=== PATIENT | female | born 1960 | race Caucasian/White ===

== ENCOUNTER 2017-10-21 12:24 | Emergency (ER) | payer MEDICAID, OTHER ==
[~2017-10-21] VITALS: Ht 157.5 cm; Wt 57.2 kg
[2017-10-21 12:51] VITALS: BP_SYST 147
[2017-10-21 14:11] VITALS: BP_SYST 139
== END 2017-10-21 14:11 | disposition home or self-care (01) ==
LOC: SED 12:24
DX: I10 Essential (primary) hypertension (principal); E11.65 Type 2 diabetes mellitus with hyperglycemia; B34.9 Viral infection, unspecified; I25.2 Old myocardial infarction; G43.909 Migraine, unspecified, not intractable, without status migrainosus; Z88.2 Allergy status to sulfonamides
CPT/HCPCS: 36415; 82962; 86710; 99284

== ENCOUNTER 2019-02-02 20:48 | Emergency (ER) | payer MEDICAID, MEDICARE ==
[~2019-02-02] VITALS: Ht 157.5 cm; Wt 63.5 kg
[2019-02-02 20:53] VITALS: BP_SYST 118
[2019-02-02] MEDS ORDERED: AMOXICILLIN/CLAVULANATE POTASSIUM 500 MG TABLET PO ONE (21:15)
== END 2019-02-02 21:20 | disposition home or self-care (01) ==
LOC: SED 20:48
DX: H66.91 Otitis media, unspecified, right ear (principal); H60.91 Unspecified otitis externa, right ear; I25.2 Old myocardial infarction; E11.9 Type 2 diabetes mellitus without complications; I10 Essential (primary) hypertension; G43.909 Migraine, unspecified, not intractable, without status migrainosus; Z88.2 Allergy status to sulfonamides
CPT/HCPCS: 99283

== ENCOUNTER 2019-11-07 16:35 | Emergency (ER) | payer MEDICARE, MEDICAID ==
[~2019-11-07] VITALS: Ht 157.5 cm; Wt 59.9 kg
[2019-11-07 16:46] VITALS: BP_SYST 113
--- NOTE | 2019-11-07 16:57 | NUR ---
Patient triaged and placed in waiting room. VSS and patient appears in no acute distress at this time. Accompanied by self, awaiting available bed, and MD notified of need for MSE.
[2019-11-07 17:14] LABS: BASOPHILS # (AUTO) 0.1 K/uL (0.0-0.2); BASOPHILS % (AUTO) 0.7 % (0.0-2.0); EOSINOPHILS # (AUTO) 0.2 K/uL (0.0-0.4); EOSINOPHILS % (AUTO) 2.2 % (0.0-4.0); HEMATOCRIT 40.4 % (36-48); HEMOGLOBIN 13.9 g/dL (12.0-16.0); LYMPHOCYTES # (AUTO) 3.3 K/uL (1.0-5.5); MEAN CORPUSCULAR HEMOGLOBIN 31 pg (27-31); MEAN CORPUSCULAR HGB CONC 35 % (32-36); MEAN CORPUSCULAR VOLUME 90 fL (79.0-98.0); MONOCYTES # (AUTO) 0.6 K/uL (0.0-1.0); MONOCYTES % (AUTO) 6.8 % (1.7-9.3); NEUTROPHILS # (AUTO) 4.3 K/uL (1.8-7.7); NEUTROPHILS % (AUTO) 51.3 % (40.0-70.0); PLATELET COUNT (AUTO) 395 K/uL (130-430); RED BLOOD CELL COUNT(AUTO) 4.47 MIL/uL (4.2-6.2); RED CELL DISTRIBUTION WIDTH 12.8 % (9.0-15.0); WHITE BLOOD COUNT (AUTO) 8.4 K/uL (4.8-10.8)
[2019-11-07 17:31] LABS: CREATININE 0.81 mg/dL (0.55-1.30); POTASSIUM 3.4 mmol/L (3.5-5.1)
[2019-11-07 17:37] LABS: ALBUMIN 3.9 g/dL (3.4-4.8); TOTAL BILIRUBIN 0.3 mg/dL (0.0-1.0)
--- NOTE | 2019-11-07 18:03 | NUR ---
Ambulatory to bed 2, report given to YOU Marcus
--- NOTE | 2019-11-07 18:15 | NUR ---
Patient presents to ER C/O Cold symptoms . Patient A&Ox4, ambulatory to ER, afebrile, skin pink and warm, pain 8/10,denies N/V/D. Patient states she has dry cough, headache, throat pain x5 days. Patient states she has taken PO tylenol & ibuprofen with out relief.
--- NOTE | 2019-11-07 19:15 | NUR ---
REPORT GIVEN TO HERBERTH ORTA
--- NOTE | 2019-11-07 19:20 | NUR ---
ASSUMED CARE. RECEIVED ALERT,ORIENTED. NOT IN ACUTE DISTRESS. VERBALIZED FEVERS,COUGH,CHEST PAIN, SOB, SORE THROAT,HEADACHE X 1 WEEK. BLOOD DRAWN,EKG,CHEST X-RAY ALREADY DONE. AWAITING ER-MD EVALUATION. WVH7=698% ON RA.
--- NOTE | 2019-11-07 19:37 | NUR ---
LEFT WITHOUT BEING SEEN BY ER-MD.
[2019-11-07 19:45] VITALS: BP_SYST 141
== END 2019-11-07 19:37 | disposition left against medical advice (07) ==
LOC: SED 16:35
DX: R05 Cough (principal); R78.9 Finding of unspecified substance, not normally found in blood; R53.1 Weakness; Z53.21 Procedure and treatment not carried out due to patient leaving prior to being seen by health care provider
CPT/HCPCS: 36415; 71045; 80053; 84484; 85025; 86710